=== PATIENT | male | born 1940 | race Caucasian/White ===

== ENCOUNTER 2020-03-29 09:37 | Outpatient (REF) | payer MEDICARE, BC, SELFPAY ==
[2020-03-29 11:44] LABS: Iron 170 mcg/dL (45-160); Percent Iron Saturation 59 % (15-50); Total Iron Binding Capacity 286 mcg/dL (228-428); Unsaturated Iron Binding 116 ug/dL
[2020-03-29 12:05] LABS: Ferritin 84 ng/mL (20-250)
== END 2020-03-29 09:38 | disposition home or self-care (01) ==
LOC: HO.BBR 09:37
PROVIDERS: PCP Internal Medicine; Visit Provider Internal Medicine Gastroenterology
DX: Z13.89 Encounter for screening for other disorder (principal)
CPT/HCPCS: 36415; 82728; 83540

== ENCOUNTER 2020-03-29 10:35 | Emergency (ER) | payer MEDICARE, BC, SELFPAY ==
--- NOTE | 2020-03-29 | ECG_ITS ---
Test Reason : DIZZINESS Blood Pressure : / mmHG Vent. Rate : 060 BPM Atrial Rate : 059 BPM P-R Int : 000 ms QRS Dur : 176 ms QT Int : 492 ms P-R-T Axes : 000 261 058 degrees QTc Int : 492 ms AV paced rhythm Abnormal ECG No previous ECGs available Referred By: Eris Rees Electronically Signed By:Steven Schroeder
[2020-03-29 10:44] LABS: Glucose, Whole Blood 102 mg/dL (60-115)
[2020-03-29 10:58] VITALS: BP 85/59; PULSE 60; RESP 18; TEMP 36.6; O2SAT 98; BMI 32.3
--- NOTE | 2020-03-29 11:04 | ED.SYNCOPE ---
HPI - Syncope General Chief Complaint: Syncope Stated Complaint: dizziness Time Seen by Provider: 03/29/20 10:56 Source: patient Limitations: no limitations History of Present Illness HPI narrative: This is a his years old male with presented to the ED after a syncopal episode he donated blood today right after he had a syncope. His blood pressures in the low side when he arrived in the ED denies any chest pain shortness of breath. 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 MD complaint: loss of consciousness Onset (ago): minute(s) (5) Duration of episode: 1 Prodromal symptoms: lightheaded Context: getting out of bed Current symptoms: back to baseline History: other (He states that he a prior episode like this after donating blood) Related Data Allergies Allergy/AdvReac Type Severity Reaction Status Date / Time No Known Allergies Allergy Verified 03/29/20 10:58 Review of Systems Review of Systems: Yes all other systems are reviewed and are negative Cardiovascular: Cardiovascular: Reports no additional cardiovascular complaints Respiratory: Respiratory: Reports no additional respiratory complaints Gastrointestinal: Gastrointestinal: Reports no additional gastrointestinal complaints Neurologic: Reports system reviewed and no additional complaints, except as documented [facility] Past Medical History Medical History (Updated 03/29/20 @ 12:45 by Eris Rees MD) Gout Pacemaker Social History Social History Advance Directives: No Advance Directives Information Provided: No Physical Exam Vital Signs: Vital Signs: Last Vital Signs Temp 97.8 F 03/29/20 10:58 Pulse 60 03/29/20 11:09 Resp 18 03/29/20 10:58 BP 83/53 L 03/29/20 11:09 Pulse Ox 98 03/29/20 10:58 Body Mass Index 32.3 Const: Other: He is awake and alert in not acute distress lying in the stretcher Orientation/consciousness: oriented to person, oriented to place, oriented to time and patient oriented x3 HENMT: Head: Yes normal to inspection Eyes: General: appearance normal, both eyes and all related structures Neck: Neck: Yes normal visual inspection Chest: Chest palpation & inspection: normal inspection of the chest Resp: Effort & Inspection: normal respiratory effort and able to speak in complete sentences Auscultation: clear to auscultation bilaterally Cardio: Jugular venous distension: no JVD Rate: regular rate GI: Inspection: Yes normal to inspection Palpation (GI): Soft to palpation and nontender Skin: General skin exam: no rashes or lesions noted Neuro: General: oriented to person, oriented to place, oriented to time and patient oriented x3 Psych: Appearance: grossly normal Course Reevaluation(s) Reevaluation #1: PATIENT WAS RE-EXAMINED AT THIS TIME HE IS NORMOTENSIVE HE HAS NO COMPLAINING FEELING GOOD HIS BLOOD PRESSURE IS BETTER. I THINK HE CAN BE DISCHARGED HOME A LIKELY THIS WAS A VASOVAGAL EPISODE AFTER DONATING BLOOD Time: 12:46 Time: 12:46 MDM - Syncope Lab Data Result diagrams: 03/29/20 11:18 03/29/20 11:18 Labs: Lab Results 03/29/20 03/29/20 03/29/20 Range/Units 10:39 11:18 11:18 WBC 8.7 (4.8-10.8) X10*3/uL RBC 4.46 L (4.60-5.80) X10*6/uL Hgb 14.0 (14.0-18.0) g/dl Hct 41.9 L (42-52) % MCV 93.9 (80-98) fL MCH 31.4 (27.0-33.0) pg MCHC 33.4 (31.0-36.0) g/dl RDW 13.9 (11.0-16.0) % Plt Count 236 (160-400) X10*3/uL MPV 9.1 L (9.4-12.4) fL Immature Gran % (Auto) 0.2 (0.0-0.4) % Neut % (Auto) 63.4 (45-73) % Lymph % (Auto) 24.8 (20-40) % [place]ee % (Auto) 8.9 (2-11) % Eos % (Auto) 2.1 (0-4) % Baso % (Auto) 0.6 (0-2) % Lymph # (Auto) 2.2 (1.2-4.9) X10*3/uL Hardee # (Auto) 0.8 (0.1-1.2) X10*3/uL Eos # (Auto) 0.2 (0.0-0.4) X10*3/uL Baso # (Auto) 0.1 (0.0-0.2) X10*3/uL Abs Immat Gran (auto) 0.02 (0.00-0.03) X10*3/uL Absolute Neuts (auto) 5.5 (2.0-8.3) X10*3/uL Absolute Nucleated RBC 0.000 (0.0-0.012) X10*3/uL Nucleated RBC % (auto) 0.0 (0.0-0.2) /100WBC PT 13.5 H (10.8-13.0) SEC INR 1.1 (0.9-1.1) Sodium (135-145) mmol/L Potassium (3.3-5.1) mmol/l Chloride (96-108) mmol/L Carbon Dioxide (22-29) mmol/L Anion Gap (12-20) BUN (9-16) mg/dL Creatinine (0.5-1.4) mg/dL Estim Creat Clear Calc Estimated GFR POC Glucose 102 (60-115) mg/dL Random Glucose (60-115) mg/dL Calcium (8.4-10.2) mg/dL Total Bilirubin (0.0-1.0) mg/dL AST (5-37) U/L ALT (0-40) U/L Alkaline Phosphatase (39-117) U/L Troponin I High Sens (<3.5-35.0) ng/L Total Protein (6.5-8.0) g/dL Albumin (3.5-5.0) g/dL 03/29/20 03/29/20 Range/Units 11:18 11:18 WBC (4.8-10.8) X10*3/uL RBC (4.60-5.80) X10*6/uL Hgb (14.0-18.0) g/dl Hct (42-52) % MCV (80-98) fL MCH (27.0-33.0) pg MCHC (31.0-36.0) g/dl RDW (11.0-16.0) % Plt Count (160-400) X10*3/uL MPV (9.4-12.4) fL Immature Gran % (Auto) (0.0-0.4) % Neut % (Auto) (45-73) % Lymph % (Auto) (20-40) % Hardee % (Auto) (2-11) % Eos % (Auto) (0-4) % Baso % (Auto) (0-2) % Lymph # (Auto) (1.2-4.9) X10*3/uL Hardee # (Auto) (0.1-1.2) X10*3/uL Eos # (Auto) (0.0-0.4) X10*3/uL Baso # (Auto) (0.0-0.2) X10*3/uL Abs Immat Gran (auto) (0.00-0.03) X10*3/uL Absolute Neuts (auto) (2.0-8.3) X10*3/uL Absolute Nucleated RBC (0.0-0.012) X10*3/uL Nucleated RBC % (auto) (0.0-0.2) /100WBC PT (10.8-13.0) SEC INR (0.9-1.1) Sodium 139 (135-145) mmol/L Potassium 4.1 (3.3-5.1) mmol/l Chloride 103 (96-108) mmol/L Carbon Dioxide 29 (22-29) mmol/L Anion Gap 11 L (12-20) BUN 19 H (9-16) mg/dL Creatinine 1.00 (0.5-1.4) mg/dL Estim Creat Clear Calc 50.0 Estimated GFR > 60 POC Glucose (60-115) mg/dL Random Glucose 114 (60-115) mg/dL Calcium 9.4 (8.4-10.2) mg/dL Total Bilirubin 0.8 (0.0-1.0) mg/dL AST 27 (5-37) U/L ALT 18 (0-40) U/L Alkaline Phosphatase 55 (39-117) U/L Troponin I High Sens 21.8 (<3.5-35.0) ng/L Total Protein 6.7 (6.5-8.0) g/dL Albumin 4.2 (3.5-5.0) g/dL ECG Data Attestation: I personally reviewed and interpreted this ECG as follows: ECG interpretation date: 03/29/20 ECG interpretation time: 11:08 Pacemaker model: Pacemaker rhythm with a rate of about 60 Discharge Plan Discharge Clinical Impression: Vasovagal syncope Patient Disposition: Home, Self-Care Referrals: Jorge Luis Ventura MD [Primary Care Provider] - 2 days (PLEASE FOLLOW-UP WITH YOUR PRIMARY CARE PHYSICIAN RETURN IF YOU WORSE)
[2020-03-29 11:08] VITALS: BP 91/57; PULSE 60
[2020-03-29 11:09] VITALS: BP 83/53; BP 84/60; PULSE 60
[2020-03-29] MEDS: 0.9 % Sodium Chloride 1,000 ML 999 ML IVCONT (11:19)
[2020-03-29 11:26] LABS: MANUAL DIFF FLAG NO
[2020-03-29 11:29] LABS: Basophils Absolute Auto 0.1 X10*3/uL (0.0-0.2); Basophils Percent Auto 0.6 % (0-2); Eosinophils Absolute Auto 0.2 X10*3/uL (0.0-0.4); Eosinophils Percent Auto 2.1 % (0-4); Hematocrit 41.9 % (42-52); Imm Gran Abs Auto 0.02 X10*3/uL (0.00-0.03); Imm Gran Pct Auto 0.2 % (0.0-0.4); Lymphocytes Absolute Auto 2.2 X10*3/uL (1.2-4.9); Lymphocytes Percent Auto 24.8 % (20-40); Mean Corpuscular HGB Conc 33.4 g/dl (31.0-36.0); Mean Corpuscular Hemoglobin 31.4 pg (27.0-33.0); Mean Corpuscular Volume 93.9 fL (80-98); Mean Platelet Volume 9.1 fL (9.4-12.4); Monocytes Absolute Auto 0.8 X10*3/uL (0.1-1.2); Monocytes Percent Auto 8.9 % (2-11); Neutrophils Absolute Auto 5.5 X10*3/uL (2.0-8.3); Neutrophils Percent Auto 63.4 % (45-73); Platelet Count 236 X10*3/uL (160-400); Red Blood Count 4.46 X10*6/uL (4.60-5.80); Red Cell Distribution Width 13.9 % (11.0-16.0); White Blood Count 8.7 X10*3/uL (4.8-10.8)
[2020-03-29 11:39] LABS: INTERNATIONAL NORM RATIO 1.1 (0.9-1.1); Prothrombin Time 13.5 SEC (10.8-13.0)
[2020-03-29 11:54] LABS: Alanine Aminotransferase 18 U/L (0-40); Albumin Level 4.2 g/dL (3.5-5.0); Alkaline Phosphatase 55 U/L (39-117); Anion Gap 11 (12-20); Aspartate Amino Transferase 27 U/L (5-37); Bilirubin Total 0.8 mg/dL (0.0-1.0); Blood Urea Nitrogen 19 mg/dL (9-16); Calcium 9.4 mg/dL (8.4-10.2); Carbon Dioxide 29 mmol/L (22-29); Chloride 103 mmol/L (96-108); Estimated Glomerular Filt Rate > 60; Glucose Random 114 mg/dL (60-115); Potassium 4.1 mmol/l (3.3-5.1); Sodium 139 mmol/L (135-145); Total Protein 6.7 g/dL (6.5-8.0)
[2020-03-29 12:01] LABS: Troponin-I High Sensitivity 21.8 ng/L (<3.5-35.0)
[2020-03-29 12:15] VITALS: BP 115/70; PULSE 60; RESP 16; O2SAT 97
[2020-03-29 12:28] VITALS: BP 122/66; PULSE 62; RESP 18; O2SAT 97
[2020-03-29 12:43] VITALS: BP 122/73; PULSE 60; RESP 18; O2SAT 96
--- NOTE | 2020-03-29 13:07 | PC.NURSE ---
OK FOR DC PER PRIMARY RN. PT AWAKE, ALERT AND ORIENTED X 3. SKIN WARM AND DRY. RESP UNLABORED. DENIES N/V. NO C/O PAIN. DENIES DIZZINESS. NEUROS INTACT. AMBULATORY, GAIT STEADY. IV REMOVED.
== END 2020-03-29 13:00 | disposition home or self-care (01) ==
PROVIDERS: Emergency Provider Emergency Medicine; PCP Internal Medicine
DX: R55 Syncope and collapse (principal); Z95.0 Presence of cardiac pacemaker
CPT/HCPCS: 36415; 80053; 82728; 82947; 83540; 84484; 85025; 85610; 93005; 96360; 99284

== ENCOUNTER 2020-09-28 09:01 | Outpatient (REF) | payer MEDICARE, BC, SELFPAY | END 2020-09-28 09:02 | disposition home or self-care (01) | LOC: HO.BBR 09:01 | PROVIDERS: Visit Provider Internal Medicine Gastroenterology | DX: Z13.89 Encounter for screening for other disorder (principal) ==

== ENCOUNTER 2021-03-31 08:02 | Outpatient (REF) | payer MEDICARE, BC, SELFPAY | END 2021-03-31 08:03 | disposition home or self-care (01) | LOC: HO.BBR 08:02 | PROVIDERS: Visit Provider Internal Medicine Gastroenterology | DX: Z13.89 Encounter for screening for other disorder (principal) ==

== ENCOUNTER 2021-04-14 09:03 | Outpatient (REF) | payer MEDICARE, BC, SELFPAY | END 2021-04-14 09:04 | disposition home or self-care (01) | LOC: HO.BBR 09:03 | PROVIDERS: Visit Provider Internal Medicine Gastroenterology | DX: Z13.89 Encounter for screening for other disorder (principal) ==

== ENCOUNTER 2021-10-12 08:59 | Outpatient (REF) | payer MEDICARE, BC, SELFPAY | END 2021-10-12 09:00 | disposition home or self-care (01) | LOC: HO.BBR 08:59 | PROVIDERS: Visit Provider Internal Medicine Gastroenterology | DX: Z13.89 Encounter for screening for other disorder (principal) ==

== ENCOUNTER 2022-04-06 08:46 | Outpatient (REF) | payer MEDICARE, BC, SELFPAY | END 2022-04-06 08:47 | disposition home or self-care (01) | LOC: HO.BBR 08:46 | PROVIDERS: Visit Provider Internal Medicine Gastroenterology | DX: Z13.89 Encounter for screening for other disorder (principal) ==

== ENCOUNTER 2022-10-04 08:51 | Outpatient (REF) | payer MEDICARE, BC, SELFPAY | END 2022-10-04 08:52 | disposition home or self-care (01) | LOC: HO.BBR 08:51 | PROVIDERS: Visit Provider Internal Medicine Gastroenterology | DX: Z13.89 Encounter for screening for other disorder (principal) ==

== ENCOUNTER 2023-04-10 08:28 | Outpatient (REF) | payer MEDICARE, BC, SELFPAY | END 2023-04-10 08:29 | disposition home or self-care (01) | LOC: HO.BBR 08:28 | PROVIDERS: Visit Provider Internal Medicine Gastroenterology | DX: Z13.89 Encounter for screening for other disorder (principal) ==

== ENCOUNTER 2023-10-10 08:55 | Outpatient (REF) | payer MEDICARE, BC, SELFPAY | END 2023-10-10 08:56 | disposition home or self-care (01) | LOC: HO.BBR 08:55 | PROVIDERS: Visit Provider Internal Medicine Gastroenterology | DX: Z13.89 Encounter for screening for other disorder (principal) ==

== ENCOUNTER 2024-04-11 08:59 | Outpatient (REF) | payer MEDICARE, BC, SELFPAY | END 2024-04-11 09:00 | disposition home or self-care (01) | LOC: HO.BBR 08:59 | PROVIDERS: Visit Provider Internal Medicine Gastroenterology | DX: Z13.89 Encounter for screening for other disorder (principal) ==

== ENCOUNTER 2024-10-09 08:43 | Outpatient (REF) | payer MEDICARE, BC, SELFPAY ==
--- OUTSIDE RECORDS SUMMARY | 2024-10-09 08:55 | XMS_ITS | Clinical Summary ---
Author Organization [facility] [address] Address [address] [place] [address] Phone Care Team Providers Care Supervising Deputy Name Role Phone Unavailable Primary Care Provider Unavailabl e Social History Tobacco Use Types Packs/Day Years Used Date Smoking Tobacco: Never Assessed Sex and Gender Information Value Date Recorded Sex Assigned at Not on file Legal Sex Male 12:35 AM EST Gender Identity Not on file Sexual Orientation Not on file Plan of Treatment Health Maintenance Due Date Last Done Comments DTaP,Tdap,and Td Vaccines (1 - Tdap) 01/20/1959 Pneumococcal Vaccine: 50+ Ye ars (1 of 1 - PCV) 01/20/1990 Zoster Vaccines (1 of 2) 01/20/1990 RSV Immunization Adult Patie nts (1 - 1-dose 75+ series) 01/20/2015 Cholesterol Screening (Lipid Panel) 02/26/2022 Depression Screening 02/26/2022 Falls Risk Assessment 02/26/2022 Medicare Annual Wellness Visit 02/26/2022 Social Influencers of Health Screening 02/26/2022 COVID-19 Vaccine (1 - 2023-2 5 season) 2023 Influenza Vaccine (#1) 2024 HIB Vaccines Aged Out No longer eligi ble based on patient's age to complete this topic HPV Vaccines Aged Out No longer eligi ble based on patient's age to complete this topic Hepatitis A Vaccines Aged Out No long er eligible based on patient's age to complete this topic Hepatitis B Vaccines Aged Out No long er eligible based on patient's age to complete this topic IPV Vaccines Aged Out No longer eligi ble based on patient's age to complete this topic MMR Vaccines Aged Out No longer eligi ble based on patient's age to complete this topic Meningococcal ACWY Vaccine Aged Out N o longer eligible based on patient's age to complete this topic Meningococcal B Vaccine Aged Out No l onger eligible based on patient's age to complete this topic RSV Immunization Patients Un annalee 20 months Aged Out No longer eligible b ased on patient's age to complete this topic Varicella Vaccines Aged Out No longer eligible based on patient's age to complete this topic Insurance MEDICARE
== END 2024-10-09 08:44 | disposition home or self-care (01) ==
LOC: HO.BBR 08:43
PROVIDERS: Visit Provider Internal Medicine Gastroenterology
DX: Z13.89 Encounter for screening for other disorder (principal)